=== PATIENT | male | born 1955 | race Caucasian/White ===

== ENCOUNTER → 2018-04-20 | Outpatient (CLI) | payer OTHER ==
[~2018-04-20] MED LIST: AMBIEN10 MG PO; ASPIRIN81 MG; AVEED; DIFLUNISAL500 MG PO; DIPYRIDAMOLE25 MG; FENTANYL CITRATE/PF 100MCG/2 ML INJ ONE; HYDROCODONE/APAP 5MG-325MG TAB ONE; LIDOCAINE HCL 1% LOCAL INJ 20 ML VIAL ONE; LOVASTATIN40 MG; METFORMIN HCL500 MG PO; MIDAZOLAM HCL 2 MG/2 ML VIAL ONE; ORPHENADRINE C100 MG PO; SPIRONOLACTONE25 MG PO; VERAPAMIL ER120 MG; WELLBUTRIN100 MG PO
[2018-04-20 09:17] LABS: INR 0.73
[2018-04-20 09:18] LABS: PARTIAL THROMBOPLASTIN TIME 30.1 seconds (23.8-35.5)
--- NOTE | 2018-04-20 12:03 | Diagnostic Imaging Report ---
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 Boggs Pre-operative diagnosis: Left retroperitoneal mass Post-operative diagnosis: Left retroperitoneal mass Conscious Sedation: Versed 1.5 mg and Fentanyl 100 mcg. The patient's heart rate and pulse oximetry were continuously monitored by the interventional radiology nurse. Blood pressure was monitored at 5 minute intervals. Total intraservice time for sedation: 35 minutes Additional Medications: Lidocaine 1% for local anesthesia Fluoroscopy time: 0 Dose-area Product: 0 mGycm2. Frontal Air Kerma: 0 Contrast used: None Estimated blood loss: Less than 5 cc Specimens: Fine-needle aspiration specimens x2, core biopsy specimens x4 Implants: None Condition at completion of procedure: Stable Disposition: Radiology holding area DISCUSSION: Informed consent was obtained and documented in the medical record after discussion of risks and benefits. The patient was placed in the prone position on the CT couch and a marker grid was placed over the left flank. Limited CT examination of the upper abdomen was performed and a suitable percutaneous approach to the left retroperitoneal mass was identified. The overlying skin was marked then prepped and draped in the standard sterile fashion. 1% lidocaine was infiltrated into the skin and subcutaneous tissues for local anesthesia. Then under intermittent CT guidance, a 16-gauge needle guide was advanced to the periphery of the mass. Subsequently, 2 fine-needle aspiration specimens were obtained using 22-gauge coaxial needles. Specimens were submitted to on-site cytopathology personnel and adequacy was confirmed. Then, 4 core biopsy specimens were obtained using an 18-gauge, 2 cm throw core biopsy apparatus with human resources hr representative CT images documenting needle position within the mass. Specimens were submitted in formalin. The needle was then removed and a sterile dressing was applied. The patient tolerated the procedure without immediate complication. FINDINGS: Left retroperitoneal mass measuring approximately 2.5 cm.. IMPRESSION: Successful CT-guided fine-needle aspiration and core biopsies of a left retroperitoneal mass as above. Signed by: Dr. Héctor Boggs M.D. on 04/20/2018 12:00 PM
--- NOTE | 2018-04-20 12:03 | Diagnostic Imaging Report ---
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 Boggs Pre-operative diagnosis: Left retroperitoneal mass Post-operative diagnosis: Left retroperitoneal mass Conscious Sedation: Versed 1.5 mg and Fentanyl 100 mcg. The patient's heart rate and pulse oximetry were continuously monitored by the interventional radiology nurse. Blood pressure was monitored at 5 minute intervals. Total intraservice time for sedation: 35 minutes Additional Medications: Lidocaine 1% for local anesthesia Fluoroscopy time: 0 Dose-area Product: 0 mGycm2. Frontal Air Kerma: 0 Contrast used: None Estimated blood loss: Less than 5 cc Specimens: Fine-needle aspiration specimens x2, core biopsy specimens x4 Implants: None Condition at completion of procedure: Stable Disposition: Radiology holding area DISCUSSION: Informed consent was obtained and documented in the medical record after discussion of risks and benefits. The patient was placed in the prone position on the CT couch and a marker grid was placed over the left flank. Limited CT examination of the upper abdomen was performed and a suitable percutaneous approach to the left retroperitoneal mass was identified. The overlying skin was marked then prepped and draped in the standard sterile fashion. 1% lidocaine was infiltrated into the skin and subcutaneous tissues for local anesthesia. Then under intermittent CT guidance, a 16-gauge needle guide was advanced to the periphery of the mass. Subsequently, 2 fine-needle aspiration specimens were obtained using 22-gauge coaxial needles. Specimens were submitted to on-site cytopathology personnel and adequacy was confirmed. Then, 4 core biopsy specimens were obtained using an 18-gauge, 2 cm throw core biopsy apparatus with customer relations representative CT images documenting needle position within the mass. Specimens were submitted in formalin. The needle was then removed and a sterile dressing was applied. The patient tolerated the procedure without immediate complication. FINDINGS: Left retroperitoneal mass measuring approximately 2.5 cm.. IMPRESSION: Successful CT-guided fine-needle aspiration and core biopsies of a left retroperitoneal mass as above. Signed by: Dr. Héctor Boggs M.D. on 04/20/2018 12:00 PM
--- NOTE | 2018-04-20 12:03 | Diagnostic Imaging Report ---
Date and Time: 04/20/2018 at 10:30 Procedure: CT-guided fine-needle aspiration and core biopsy of a left retroperitoneal mass casting operator: Dr. Boggs Pre-operative diagnosis: Left retroperitoneal mass Post-operative diagnosis: Left retroperitoneal mass Conscious Sedation: Versed 1.5 mg and Fentanyl 100 mcg. The patient's heart rate and pulse oximetry were continuously monitored by the interventional radiology nurse. Blood pressure was monitored at 5 minute intervals. Total intraservice time for sedation: 35 minutes Additional Medications: Lidocaine 1% for local anesthesia Fluoroscopy time: 0 Dose-area Product: 0 mGycm2. Frontal Air Kerma: 0 Contrast used: None Estimated blood loss: Less than 5 cc Specimens: Fine-needle aspiration specimens x2, core biopsy specimens x4 Implants: None Condition at completion of procedure: Stable Disposition: Radiology holding area DISCUSSION: Informed consent was obtained and documented in the medical record after discussion of risks and benefits. The patient was placed in the prone position on the CT couch and a marker grid was placed over the left flank. Limited CT examination of the upper abdomen was performed and a suitable percutaneous approach to the left retroperitoneal mass was identified. The overlying skin was marked then prepped and draped in the standard sterile fashion. 1% lidocaine was infiltrated into the skin and subcutaneous tissues for local anesthesia. Then under intermittent CT guidance, a 16-gauge needle guide was advanced to the periphery of the mass. Subsequently, 2 fine-needle aspiration specimens were obtained using 22-gauge coaxial needles. Specimens were submitted to on-site cytopathology personnel and adequacy was confirmed. Then, 4 core biopsy specimens were obtained using an 18-gauge, 2 cm throw core biopsy apparatus with malt liquors sales representative CT images documenting needle position within the mass. Specimens were submitted in formalin. The needle was then removed and a sterile dressing was applied. The patient tolerated the procedure without immediate complication. FINDINGS: Left retroperitoneal mass measuring approximately 2.5 cm.. IMPRESSION: Successful CT-guided fine-needle aspiration and core biopsies of a left retroperitoneal mass as above. Signed by: Dr. Héctor Boggs M.D. on 04/20/2018 12:00 PM
--- NOTE | 2018-04-20 12:03 | Diagnostic Imaging Report ---
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 Boggs Pre-operative diagnosis: Left retroperitoneal mass Post-operative diagnosis: Left retroperitoneal mass Conscious Sedation: Versed 1.5 mg and Fentanyl 100 mcg. The patient's heart rate and pulse oximetry were continuously monitored by the interventional radiology nurse. Blood pressure was monitored at 5 minute intervals. Total intraservice time for sedation: 35 minutes Additional Medications: Lidocaine 1% for local anesthesia Fluoroscopy time: 0 Dose-area Product: 0 mGycm2. Frontal Air Kerma: 0 Contrast used: None Estimated blood loss: Less than 5 cc Specimens: Fine-needle aspiration specimens x2, core biopsy specimens x4 Implants: None Condition at completion of procedure: Stable Disposition: Radiology holding area DISCUSSION: Informed consent was obtained and documented in the medical record after discussion of risks and benefits. The patient was placed in the prone position on the CT couch and a marker grid was placed over the left flank. Limited CT examination of the upper abdomen was performed and a suitable percutaneous approach to the left retroperitoneal mass was identified. The overlying skin was marked then prepped and draped in the standard sterile fashion. 1% lidocaine was infiltrated into the skin and subcutaneous tissues for local anesthesia. Then under intermittent CT guidance, a 16-gauge needle guide was advanced to the periphery of the mass. Subsequently, 2 fine-needle aspiration specimens were obtained using 22-gauge coaxial needles. Specimens were submitted to on-site cytopathology personnel and adequacy was confirmed. Then, 4 core biopsy specimens were obtained using an 18-gauge, 2 cm throw core biopsy apparatus with order entry representative CT images documenting needle position within the mass. Specimens were submitted in formalin. The needle was then removed and a sterile dressing was applied. The patient tolerated the procedure without immediate complication. FINDINGS: Left retroperitoneal mass measuring approximately 2.5 cm.. IMPRESSION: Successful CT-guided fine-needle aspiration and core biopsies of a left retroperitoneal mass as above. Signed by: Dr. Héctor Boggs M.D. on 04/20/2018 12:00 PM
== END ==
LOC: CT 07:57
PROVIDERS: ATTEND Urology
DX: R93.5 Abnormal findings on diagnostic imaging of other abdominal regions, including retroperitoneum (principal)
CPT/HCPCS: 10022; 36415; 49180; 77012; 85049; 85610; 85730; 88112; 88172; 88173; 88305; J2001; J2250; 88342; 99152; 99153

== ENCOUNTER 2018-04-21 03:32 | Emergency (ER) | payer BC, OTHER ==
[~2018-04-21] VITALS: Ht 330.2 cm; Wt 108.9 kg
[~2018-04-21 03:32] MED LIST changes: -FENTANYL CITRATE/PF 100MCG/2 ML INJ ONE; -HYDROCODONE/APAP 5MG-325MG TAB ONE; -LIDOCAINE HCL 1% LOCAL INJ 20 ML VIAL ONE; -MIDAZOLAM HCL 2 MG/2 ML VIAL ONE
--- OUTSIDE RECORDS SUMMARY | 2018-04-21 03:36 | XMS REPORT ---
Author Author [facility] Address Unknown Phone Unavailable Care Team Providers Care Forestry Aid Technician Name Role Phone BRENDA CARRASCO Unavailable Unavailable Problems This patient has no known problems. Allergies, Adverse Reactions, Alerts This patient has no known allergies or adverse reactions. Medications This patient has no known medications. 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 Perdue Pre-operative diagnosis: Left retroperitoneal mass Post-operative diagnosis: Left retroperitoneal mass Conscious Sedation: Versed 1.5 mg and Fentanyl 100 mcg. The patient's heart rate and pulse oximetry were continuously monitored by the interventional radiology nurse. Blood pressure was monitored at 5 minute intervals. Total intraservice time for sedation: 35 minutes Additional Medications: Lidocaine 1% for local anesthesia Fluoroscopy time: 0 Dose-area Product: 0 mGycm2. Frontal Air Kerma: 0 Contrast used: None Estimated blood loss: Less than 5 cc Specimens: Fine-needle aspiration specimens x2, core biopsy specimens x4 Implants: None Condition at completion of procedure: Stable Disposition: Radiology holding area DISCUSSION: Informed consent was obtained and documented in the medical record after discussion of risks and benefits. The patient was placed in the prone position on the CT couch and a marker grid was placed over the left flank. Limited CT examination of the upper abdomen was performed and a suitable percutaneous approach to the left retroperitoneal mass was identified. The overlying skin was marked then prepped and draped in the standard sterile fashion. 1% lidocaine was infiltrated into the skin and subcutaneous tissues for local anesthesia. Then under intermittent CT guidance, a 16-gauge needle guide was advanced to the periphery of the mass. Subsequently, 2 fine-needle aspiration specimens were obtained using 22-gauge coaxial needles. Specimens were submitted to on-site cytopathology personnel and adequacy was confirmed. Then, 4 core biopsy specimens were obtained using an 18-gauge, 2 cm throw core biopsy apparatus with food service sales representatives CT images documenting needle position within the mass. Specimens were submitted in formalin. The needle was then removed and a sterile dressing was applied. The patient tolerated the procedure without immediate complication. FINDINGS: Left retroperitoneal mass measuring approximately 2.5 cm.. IMPRESSION: Successful CT-guided fine-needle aspiration and core biopsies of a left retroperitoneal mass as above. Signed by: Dr. Ulises Perdue M.D. 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 Perdue Pre-operative diagnosis: Left retroperitoneal mass Post-operative diagnosis: Left retroperitoneal mass Conscious Sedation: Versed 1.5 mg and Fentanyl 100 mcg. The patient's heart rate and pulse oximetry were continuously monitored by the interventional radiology nurse. Blood pressure was monitored at 5 minute intervals. Total intraservice time for sedation: 35 minutes Additional Medications: Lidocaine 1% for local anesthesia Fluoroscopy time: 0 Dose-area Product: 0 mGycm2. Frontal Air Kerma: 0 Contrast used: None Estimated blood loss: Less than 5 cc Specimens: Fine-needle aspiration specimens x2, core biopsy specimens x4 Implants: None Condition at completion of procedure: Stable Disposition: Radiology holding area DISCUSSION: Informed consent was obtained and documented in the medical record after discussion of risks and b enefits. The patient was placed in the prone position on the CT couch and a marker grid was placed over the left flank. Limited CT examination of the upper abdomen was performed and a suitable percutaneous approach to the left retroperitoneal mass was identified. The overlying skin was marked then prepped and draped in the standard sterile fashion. 1% lidocaine was infiltrated into the skin and subcutaneous tissues for local anesthesia. Then under intermittent CT guidance, a 16-gauge needle guide was advanced to the periphery of the mass. Subsequently, 2 fine-needle aspiration specimens were obtained using 22-gauge coaxial needles. Specimens were submitted to on-site cytopathology personnel and adequacy was confirmed. Then, 4 core biopsy specimens were obtained using an 18-gauge, 2 cm throw core biopsy apparatus with food service sales representatives CT images documenting needle position within the mass. Specimens were submitted in formalin. The needle was then removed and a sterile dressing was applied. The patient tolerated the procedure without immediate complication. FINDINGS: Left retroperitoneal mass measuring approximately 2.5 cm.. IMPRESSION: Successful CT-guided fine-needle aspiration and core biopsies of a left retroperitoneal mass as above. Signed by: Dr. Ulises Perdue M.D. on 04/20/2018 12:00 PM Dictated By: ULISES PERDUE MD 1200 Transcribed By: JILL on 04/20/18 1200 COPY TO: BRENDA CARRASCO MD, MD SEDATE INITIAL > 5 YRS 2018-04-20 11:52:00 [place] [address] Patient Name: SAM ANDERSON MR #: [id number] : 1955 Age/Sex: 63/M Req #: [id number] Adm Physician: Ordered by: ULISES PERDUE MD Report #: [id number] Location: [place] Room/Bed: Procedure: [id number] JOSE/ SEDATE INITIAL > 5 YRS Exam Date: 04/20/18 Exam Time: 1019 REPORT STATUS: Signed Date and Time: 04/20/2018 at 10:30 Procedure: CT- guided fine-needle aspiration and core biopsy of a left retroperitoneal mass gear lapping 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 Perdue Pre-operative diagnosis: Left retroperitoneal mass Post-operative diagnosis: Left retroperitoneal mass Conscious Sedation: Versed 1.5 mg and Fentanyl 100 mcg. The patient's heart rate and pulse oximetry were continuously monitored by the interventional radiology nurse. Blood pressure was monitored at 5 minute intervals. Total intraservice time for sedation: 35 minutes Additional Medications: Lidocaine 1% for local anesthesia Fluoroscopy time: 0 Dose-area Product: 0 mGycm2. Frontal Air Kerma: 0 Contrast used: None Estimated blood loss: Less than 5 cc Specimens: Fine-needle aspiration specimens x2, core biopsy specimens x4 Implants: None Condition at completion of procedure: Stable Disposition: Radiology holding area DISCUSSION: Informed consent was obtained and documented in the medical record after discussion of risks and benefits. The patient was placed in the prone position on the CT couch and a marker grid was placed over the left flank. Limited CT examination of the upper abdomen was performed and a suitable percutaneous approach to the left retroperitoneal mass was identified. The overlying skin was marked then prepped and draped in the standard sterile fashion. 1% lidocaine was infiltrated into the skin and subcutaneous tissues for local anesthesia. Then under intermittent CT guidance, a 16-gauge needle guide was advanced to the periphery of the mass. Subsequently, 2 fine-needle aspiration specimens were obtained using 22-gauge coaxial needles. Specimens were submitted to on-site cytopathology personnel and adequacy was confirmed. Then, 4 core biopsy specimens were obtained using an 18-gauge, 2 cm throw core biopsy apparatus with food service sales representatives CT images documenting needle position within the mass. Specimens were submitted in formalin. The needle was then removed and a sterile dressing was applied. The patient tolerated the procedure without immediate complication. FINDINGS: Left retroperitoneal mass measuring approximately 2.5 cm.. IMPRESSION: Successful CT-guided fine-needle aspiration and core biopsies of a left retroperitoneal mass as above. Signed by: Dr. Ulises Perdue M.D. on 04/20/2018 12:00 PM Dictated By: ULISES PERDUE MD 1200 Transcribed By: JILL on 04/20/18 1200 COPY TO: ULISES PERDUE MD BIOPSY ABDOMEN RETROPERITONEAL 2018-04-20 11:52:00 [place] [address] Patient Name: SAM ANDERSON MR #: [id number] : 1955 Age/Sex: 63/M Req #: [id number] Adm Physician: Ordered by: BRENDA CARRASCO MD Report #: [id number] Location: [place] Room/Bed: Procedure: [id number] IR/BIOPSY ABDOMEN RETROPERITONEAL Exam Date: 04/20/18 Exam Time: 1019 REPORT STATUS: Signed Date and Time: 04/20/2018 at 10:30 Procedure: CT-guided fine-needle aspiration and core biopsy of a left retroperitoneal mass gear lapping 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 Perdue Pre-operative diagnosis: Left retroperitoneal mass Post-operative diagnosis: Left retroperitoneal mass Conscious Sedation: Versed 1.5 mg and Fentanyl 100 mcg. The patient's heart rate and pulse oximetry were continuously monitored by the interventional radiology nurse. Blood pressure was monitored at 5 minute intervals. Total intraservice time for sedation: 35 minutes Additional Medications: Lidocaine 1% for local anesthesia Fluoroscopy time: 0 Dose-area Product: 0 mGycm2. Frontal Air Kerma: 0 Contrast used: None Estimated blood loss: Less than 5 cc Specimens: Fine-needle aspiration specimens x2, core biopsy specimens x4 Implants: None Condition at completion of procedure: Stable Disposition: Radiology holding area DISCUSSION: Informed consent was obtained and documented in the medical record after discussion of risks and benefits. The patient was placed in the prone position on the CT couch and a marker grid was placed over the left flank. Limited CT examination of the upper abdomen was performed and a suitable percutaneous approach to the left retroperitoneal mass was identified. The overlying skin was marked then prepped and draped in the standard sterile fashion. 1% lidocaine was infiltrated into the skin and subcutaneous tissues for local anesthesia. Then under intermittent CT guidance, a 16-gauge needle guide was advanced to the periphery of the mass. Subsequently, 2 fine-needle aspiration specimens were obtained using 22-gauge coaxial needles. Specimens were submitted to on-site cytopathology personnel and adequacy was confirmed. Then, 4 core biopsy specimens were obtained using an 18-gauge, 2 cm throw core biopsy apparatus with food service sales representatives CT images documenting needle position within the mass. Specimens were submitted in formalin. The needle was then removed and a sterile dressing was applied. The patient tolerated the procedure without immediate complication. FINDINGS: Left retroperitoneal mass measuring approximately 2.5 cm.. IMPRESSION: Successful CT-guided fine-needle aspiration and core biopsies of a left retroperitoneal mass as above. Signed by: Dr. Ulises Perdue M.D. on 04/20/2018 12:00 PM Dictated By: ULISES PERDUE MD 1200 Transcribed By: JILL on 04/20/18 1200 COPY TO: BRENDA CARRASCO MD CT GUIDED BIOPSY/ASPIR/INJ/KODI 2018-04-20 11:52:00 [place] [address] Patient Name: SAM ANDERSON MR #: [id number] : 1955 Age/Sex: 63/M Req #: [id number] Adm Physician: Ordered by: BRENDA CARRASCO MD Report #: [id number] Location: CT Room/Bed: Procedure: [id number] CT/CT GUIDED BIOPSY/ASPIR/INJ/KODI Exam Date: 04/20/18 Exam Time: 1019 REPORT STATUS: Signed Date and Time: 04/20/2018 at 10:30 Procedure: CT-guided fine-needle aspiration and core biopsy of a left retroperitoneal mass gear lapping 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 Perdue Pre-operative diagnosis: Left retroperitoneal mass Post-operative diagnosis: Left retroperitoneal mass Conscious Sedation: Versed 1.5 mg and Fentanyl 100 mcg. The patient's heart rate and pulse oximetry were continuously monitored by the interventional radiology nurse. Blood pressure was monitored at 5 minute intervals. Total intraservice time for sedation: 35 minutes Additional Medications: Lidocaine 1% for local anesthesia Fluoroscopy time: 0 Dose-area Product: 0 mGycm2. Frontal Air Kerma: 0 Contrast used: None Estimated blood loss: Less than 5 cc Specimens: Fine-needle aspiration specimens x2, core biopsy specimens x4 Implants: None Condition at completion of procedure: Stable Disposition: Radiology holding area DISCUSSION: Informed consent was obtained and documented in the medical record after discussion of risks and benefits. The patient was placed in the prone position on the CT couch and a marker grid was placed over the left flank. Limited CT examination of the upper abdomen was performed and a suitable percutaneous approach to the left retroperitoneal mass was identified. The overlying skin was marked then prepped and draped in the standard sterile fashion. 1% lidocaine was infiltrated into the skin and subcutaneous tissues for local anesthesia. Then under intermittent CT guidance, a 16-gauge needle guide was advanced to the periphery of the mass. Subsequently, 2 fine-needle aspiration specimens were obtained using 22-gauge coaxial needles. Specimens were submitted to on-site cytopathology personnel and adequacy was confirmed. Then, 4 core biopsy specimens were obtained using an 18-gauge, 2 cm throw core biopsy apparatus with food service sales representatives CT images documenting needle position within the mass. Specimens were submitted in formalin. The needle was then removed and a sterile dressing was applied. The patient tolerated the procedure without immediate complication. FINDINGS: Left retroperitoneal mass measuring approximately 2.5 cm..
[2018-04-21] MEDS ORDERED: LIDOCAINE 5% PATCH TP ONE (04:23)
[2018-04-21] MEDS ORDERED: LIDOCAINE 5% PATCH TP STA (04:39)
[2018-04-21 06:28] VITALS: BP 103/89
== END 2018-04-21 06:07 | disposition home or self-care (01) ==
LOC: ER 03:32
DX: M54.5 Low back pain (principal); S39.012A Strain of muscle, fascia and tendon of lower back, initial encounter; Z87.891 Personal history of nicotine dependence
CPT/HCPCS: 99283

== ENCOUNTER 2020-04-18 08:34 | Observation (INO) | payer MEDICARE ==
[2020-04-15 13:39] LABS: BASOPHILS % 0.4 % (0.0-1.0); EOSINOPHILS # (AUTO) 0.1 (0.0-0.4); EOSINOPHILS % 0.7 % (0.0-6.0); HEMATOCRIT 46.9 % (38.2-49.6); HEMOGLOBIN 15.5 g/dL (14.0-18.0); LYMPHOCYTES # (AUTO) 1.9 (1.0-3.2); LYMPHOCYTES % 27.6 % (18.0-39.1); MEAN CORPUSCULAR HEMOGLOBIN 31.6 pg (28-32); MEAN CORPUSCULAR VOLUME 95.7 fL (81-99); MONOCYTES # (AUTO) 0.6 (0.2-0.8); MONOCYTES % 8.7 % (4.4-11.3); NEUTROPHILS # (AUTO) 4.4 (2.1-6.9); NEUTROPHILS % 62.2 % (38.7-80.0); PLATELET COUNT 234 x10e3/uL (140-360); RED CELL DISTRIBUTION WIDTH 14.9 % (11.7-14.4)
[2020-04-15 13:59] LABS: ALANINE AMINOTRANSFERASE 25 IU/L (0-55); ALBUMIN 3.9 g/dL (3.5-5.0); ALBUMIN/GLOBULIN RATIO 1.3 (0.8-2.0); ALKALINE PHOSPHATASE 51 IU/L (40-150); ANION GAP 14.5 mmol/L (8-16); BLOOD UREA NITROGEN 14 mg/dL (7-26); BUN/CREATININE RATIO 16 (6-25); CALCIUM 9.5 mg/dL (8.4-10.2); CARBON DIOXIDE 28 mmol/L (22-29); CHLORIDE 104 mmol/L (98-107); CREATININE, SERUM 0.87 mg/dL (0.72-1.25); EST GLOMERULAR FILTRATION RATE > 60 ML/MIN (60-); GLUCOSE 95 mg/dL (74-118); POTASSIUM 4.5 mmol/L (3.5-5.1); SODIUM 142 mmol/L (136-145)
[~2020-04-18] VITALS: Ht 177.8 cm; Wt 103.4 kg
[~2020-04-18 08:34] MED LIST changes: +BACTRIM DS TAB1 EACH PO; +CARVEDILOL3.125 MG PO; +FLOMAX0.4 MG PO; -LOVASTATIN40 MG; +LOVASTATIN40 MG PO; +METOPROLOL TART25 MG PO; -VERAPAMIL ER120 MG; +VERAPAMIL ER120 MG PO; +VITAMIN D
[2020-04-18] MEDS ORDERED: LEVOFLOXACIN 500MG/D5W 100ML 100 ML IV ONE (09:18)
[2020-04-18] MEDS ORDERED: IOPAMIDOL 300MG/ML 50ML INFUS..BTL IV ONE (10:18)
[2020-04-18] MEDS ORDERED: B&O 60MG R/S 60 MG SUPP PR ONE (10:18)
[2020-04-18] MEDS ORDERED: SEVOFLURANE INHAL SOLN 250 ML PEN BTL ONE (12:30)
[2020-04-18] MEDS ORDERED: PROPOFOL IV EMULSION 10 MG/ML 20 ML VIAL ONE (12:30)
[2020-04-18] MEDS ORDERED: LIDOCAINE HCL 2% LOCAL INJ 5 ML SDV VIAL INJ ONE (12:30)
[2020-04-18] MEDS ORDERED: ONDANSETRON HCL INJ 2MG/ML 2ML 2 MG/ML VIAL ONE (12:30)
[2020-04-18] MEDS ORDERED: DEXAMETHASONE SOD PHOS INJ 4 MG/ML VIAL ONE (12:30)
[2020-04-18] MEDS ORDERED: FENTANYL CITRATE/PF 100MCG/2 ML INJ ONE ×2 (12:42→17:35)
[2020-04-18] MEDS ORDERED: HYDROMORPHONE 2MG/ML 2 MG/ML ML ONE (12:51)
[2020-04-18] MEDS ORDERED: MORPHINE SULFATE INJ 4 MG/ML INJ 1ML ONE (13:20)
[2020-04-18] MEDS ORDERED: MORPHINE SULFATE 2 MG/ML SYR 1ML ONE (14:18)
[2020-04-18 16:06] VITALS: BP 107/75
[2020-04-18 16:30] VITALS: BP 107/75
[2020-04-18] MEDS ORDERED: ONDANSETRON HCL INJ 2MG/ML 2ML 2 MG/ML VIAL IV PRN (16:30)
[2020-04-18] MEDS ORDERED: TRAMADOL HCL 50 MG TAB PO PRN (16:30)
[2020-04-18] MEDS ORDERED: KETOROLAC TROMETHAMINE 30 MG/ML VIAL IV PRN (16:30)
[2020-04-18] MEDS ORDERED: MIDAZOLAM HCL 2 MG/2 ML VIAL ONE (17:35)
[2020-04-18] MEDS ORDERED: PNEUMOCOCCAL VACCINE POLYVALENT 23 MCG/0.5 ML VIAL IM SCH (17:35)
[2020-04-18] MEDS: LACTATED RINGER'S 1,000 ML INJ SCH (17:46)
[2020-04-18] MEDS ORDERED: METOPROLOL TART25 MG PO (17:53)
[2020-04-18] MEDS ORDERED: ZOLPIDEM TARTRATE 10 MG TAB PO PRN (18:00)
[2020-04-18 20:00] VITALS: BP 101/65
[2020-04-18 21:00] VITALS: BP 101/65
[2020-04-18] MEDS ORDERED: METOPROLOL TARTRATE 25 MG TAB PO SCH (21:00)
[2020-04-18] MEDS: CIPROFLOXACIN 500 MG TAB PO SCH (21:04)
[2020-04-18] MEDS: SIMVASTATIN 40 MG TAB PO SCH (21:04)
[2020-04-19] VITALS (8 sets, daily range): BP systolic 105–114; BP diastolic 66–79
[2020-04-19] MEDS: LACTATED RINGER'S 1,000 ML INJ SCH ×3 (01:19→17:49)
[2020-04-19] MEDS: B&O 60MG R/S 60 MG SUPP PR PRN ×2 (06:25→12:54)
[2020-04-19] MEDS ORDERED: METFORMIN HCL 500 MG TAB PO SCH (09:00)
[2020-04-19] MEDS ORDERED: METOPROLOL TARTRATE 25 MG TAB PO SCH (09:00)
[2020-04-19] MEDS ORDERED: TAMSULOSIN HCL 0.4 MG CAP PO SCH ×2 (09:00→21:00)
[2020-04-19] MEDS: CIPROFLOXACIN 500 MG TAB PO SCH ×2 (09:57→20:23)
[2020-04-19] MEDS: CARVEDILOL 3.125 MG TAB PO SCH ×2 (09:57→17:50)
[2020-04-19] MEDS: VERAPAMIL HCL 120 MG TABSR PO SCH (09:57)
[2020-04-19] MEDS: SPIRONOLACTONE 25 MG TAB PO SCH (09:57)
[2020-04-19] MEDS: SIMVASTATIN 40 MG TAB PO SCH (20:24)
[2020-04-20] VITALS: BP 112/69
[2020-04-20] MEDS: LACTATED RINGER'S 1,000 ML INJ SCH ×2 (00:30→07:43)
[2020-04-20 04:00] VITALS: BP 118/74
[2020-04-20] MEDS: B&O 60MG R/S 60 MG SUPP PR PRN (07:43)
[2020-04-20 08:21] VITALS: BP 122/84
[2020-04-20] MEDS: CARVEDILOL 3.125 MG TAB PO SCH (08:52)
[2020-04-20] MEDS: CIPROFLOXACIN 500 MG TAB PO SCH (08:52)
[2020-04-20] MEDS: SPIRONOLACTONE 25 MG TAB PO SCH (08:52)
[2020-04-20] MEDS: VERAPAMIL HCL 120 MG TABSR PO SCH (08:52)
[2020-04-20 09:37] VITALS: BP 122/84
[2020-04-20] MEDS ORDERED: ULTRAM50 MG PO (10:49)
[2020-04-20] MEDS ORDERED: CIPRO500 MG PO (10:50)
[2020-04-20 11:13] VITALS: BP 123/87
[2020-04-20] MEDS ORDERED: METFORMIN HCL 500 MG TAB PO SCH (21:00)
== END 2020-04-20 12:07 | disposition home or self-care (01) ==
LOC: OR 08:34 → PACU V 13:03 → MED/SURG 15:51
PROVIDERS: ADMIT Urology; ATTEND Urology
DX: N40.1 Benign prostatic hyperplasia with lower urinary tract symptoms (principal); R33.8 Other retention of urine; N39.0 Urinary tract infection, site not specified; E11.9 Type 2 diabetes mellitus without complications; G47.33 Obstructive sleep apnea (adult) (pediatric); I10 Essential (primary) hypertension; N32.89 Other specified disorders of bladder; Z20.828 Contact with and (suspected) exposure to other viral communicable diseases
CPT/HCPCS: 36415 ×2; 52601; 71046; 74420; 80053; 82948; 85025; 87086; 88305; 93005; 96360; 96361; C1758; G0378 ×3; J1100; J1170; J1885; J1956; J2001; J2250; J2270 ×2; J2405; J2704; J3010; J7121 ×3; Q9967; U0002

== ENCOUNTER 2022-02-21 07:17 | Inpatient (IN) | payer MEDICARE ==
[~2022-02-21] VITALS: Ht 172.7 cm; Wt 103.4 kg
[~2022-02-21 07:17] MED LIST changes: +CIPRO500 MG PO; +ULTRAM50 MG PO
[2022-02-21] MEDS ORDERED: ONDANSETRON HCL INJ 2MG/ML 2ML 2 MG/ML VIAL IV STA (07:38)
[2022-02-21] MEDS ORDERED: KETOROLAC TROMETHAMINE 30 MG/ML VIAL IV STA (07:38)
[2022-02-21] MEDS ORDERED: FENTANYL CITRATE/PF 100MCG/2 ML INJ IV ONE (07:45)
[2022-02-21] MEDS ORDERED: SODIUM CHLORIDE 0.9% 1000ML 1,000 ML IV SCH (08:00)
[2022-02-21 08:09] LABS: BASOPHILS % 0.2 % (0.0-1.0); HEMATOCRIT 47.2 % (38.2-49.6); LYMPHOCYTES % 4.7 % (18.0-39.1); MEAN CORPUSCULAR HGB CONC 33.9 g/dL (31-35); MEAN CORPUSCULAR VOLUME 97.3 fL (81-99); MONOCYTES # (AUTO) 1.9 (0.2-0.8); MONOCYTES % 9.2 % (4.4-11.3); NEUTROPHILS # (AUTO) 17.2 (2.1-6.9); NEUTROPHILS % 84.8 % (38.7-80.0); PLATELET COUNT 224 x10e3/uL (140-360); RED BLOOD COUNT 4.85 x10e6/uL (4.3-5.7); RED CELL DISTRIBUTION WIDTH 13.7 % (11.7-14.4)
[2022-02-21 08:47] LABS: ALBUMIN/GLOBULIN RATIO 1.3 (0.8-2.0); CALCIUM 9.1 mg/dL (8.4-10.2); CREATININE, SERUM 1.37 mg/dL (0.72-1.25)
[2022-02-21] MEDS ORDERED: PIPERACILLIN/TAZOBACTAM 4.5 GM in SODIUM CHLORIDE 0.9% 100 ML IV STA (09:06)
[2022-02-21 09:13] LABS: CLARITY,URINE CLEAR (CLEAR); COLOR,URINE YELLOW (YELLOW); KETONES,URINE NEGATIVE (NEGATIVE); LEUKOCYTE ESTERASE ,URINE SMALL (NEGATIVE); NITRITE,URINE NEGATIVE (NEGATIVE); PROTEIN,URINE DIPSTICK TRACE (NEGATIVE); URINE UROBILINOGEN 0.2 mg/dL (0.2 - 1)
[2022-02-21 09:20] LABS: BACTERIA,URINE FEW /HPF; EPITHELIAL CELLS,URINE FEW /LPF; WBC,URINE (MAN) >50 /HPF (0-5)
[2022-02-21] MEDS: SODIUM CHLORIDE 0.9% 1000ML 1,000 ML IV SCH ×3 (09:30→21:08)
[2022-02-21] MEDS ORDERED: ONDANSETRON HCL INJ 2MG/ML 2ML 2 MG/ML VIAL IV PRN ×2 (09:30→15:30)
[2022-02-21] MEDS ORDERED: GENTAMICIN 80MG/NS 100 ML 100 ML IV STA (10:21)
[2022-02-21] MEDS: Morphine 4mg INJECTION 4 MG/ML INJ IV PRN ×2 (11:00→21:14)
[2022-02-21] MEDS ORDERED: PROPOFOL IV EMULSION 10 MG/ML 20 ML VIAL ONE (12:21)
[2022-02-21] MEDS ORDERED: ETOMIDATE 2 MG/ML 10 ML INJ IV ONE (12:21)
[2022-02-21] MEDS ORDERED: SEVOFLURANE INHAL SOLN 250 ML PEN BTL ONE (12:21)
[2022-02-21] MEDS ORDERED: DEXAMETHASONE SOD PHOS INJ 4 MG/ML SDV ONE (12:21)
[2022-02-21] MEDS ORDERED: ONDANSETRON HCL INJ 2MG/ML 2ML 2 MG/ML VIAL ONE (12:21)
[2022-02-21] MEDS ORDERED: POVIDONE IODINE 0.05% 0.05 % ML PO ONE (12:21)
[2022-02-21 12:34] VITALS: BP 123/70
[2022-02-21] MEDS ORDERED: MIDAZOLAM HCL 2 MG/2 ML VIAL ONE (12:49)
[2022-02-21] MEDS ORDERED: FENTANYL CITRATE/PF 100MCG/2 ML INJ ONE (12:49)
[2022-02-21 14:00] VITALS: BP 123/70
[2022-02-21] MEDS ORDERED: IOPAMIDOL 610MG/1ML 300 MG/ML VIAL IV ONE (15:09)
[2022-02-21] MEDS ORDERED: TRAMADOL/APAP 37.5MG-325MG TAB PO PRN (15:30)
[2022-02-21] MEDS ORDERED: DIPHENHYDRAMINE HCL 25 MG CAP PO PRN (15:30)
[2022-02-21] MEDS ORDERED: ACETAMINOPHEN 1000 MG/100 ML 100 ML IV ONE (15:59)
[2022-02-21] MEDS ORDERED: SODIUM CHLORIDE 0.9% 100 ML IV ONE (16:15)
[2022-02-21] MEDS: GENTAMICIN SULFATE 60 MG in SODIUM CHLORIDE 0.9% 100 ML IV SCH (18:06)
[2022-02-21 20:00] VITALS: BP_SYST 119; BP_SYST 140; BP_DIAS 73; BP_DIAS 80
[2022-02-22] VITALS: BP 98/60
[2022-02-22] MEDS: GENTAMICIN SULFATE 60 MG in SODIUM CHLORIDE 0.9% 100 ML IV SCH ×2 (01:18→10:24)
[2022-02-22 04:00] VITALS: BP 130/64
[2022-02-22 06:05] LABS: BASOPHILS % 0.2 % (0.0-1.0); HEMATOCRIT 41.3 % (38.2-49.6); HEMOGLOBIN 13.4 g/dL (14.0-18.0); LYMPHOCYTES # (AUTO) 1.6 (1.0-3.2); LYMPHOCYTES % 8.7 % (18.0-39.1); MEAN CORPUSCULAR HEMOGLOBIN 32.6 pg (28-32); MEAN CORPUSCULAR HGB CONC 32.4 g/dL (31-35); MEAN CORPUSCULAR VOLUME 100.5 fL (81-99); MONOCYTES # (AUTO) 2.1 (0.2-0.8); MONOCYTES % 10.9 % (4.4-11.3); NEUTROPHILS % 79.5 % (38.7-80.0); PLATELET COUNT 168 x10e3/uL (140-360); RED BLOOD COUNT 4.11 x10e6/uL (4.3-5.7); RED CELL DISTRIBUTION WIDTH 13.8 % (11.7-14.4)
[2022-02-22 06:32] LABS: CALCIUM 8.2 mg/dL (8.4-10.2); CREATININE, SERUM 1.29 mg/dL (0.72-1.25)
[2022-02-22 08:00] VITALS: BP 130/64
[2022-02-22] MEDS: METOPROLOL TARTRATE 25 MG TAB PO SCH (10:24)
[2022-02-22] MEDS: SODIUM CHLORIDE 0.9% 1000ML 1,000 ML IV SCH (10:24)
[2022-02-22] MEDS: Vancomycin IV 1 GM in SODIUM CHLORIDE 0.9% 250ML 250 ML IV SCH ×2 (13:37→23:35)
[2022-02-22 18:10] VITALS: BP 112/61
[2022-02-22] MEDS ORDERED: DEXTROSE 50% SYRINGE 50 ML IV PRN (18:15)
[2022-02-22] MEDS: ACETAMINOPHEN 325 MG TAB PO PRN (18:58)
[2022-02-22 20:00] VITALS: BP 99/48
[2022-02-22] MEDS: INSULIN LISPRO 100 UNIT/1 ML 3ML VIAL SQ SCH (20:18)
[2022-02-23] VITALS (11 sets, daily range): BP systolic 82–127; BP diastolic 48–91
[2022-02-23] MEDS: ACETAMINOPHEN 325 MG TAB PO PRN (05:25)
[2022-02-23 06:21] LABS: BASOPHILS % 0.3 % (0.0-1.0); EOSINOPHILS % 0.3 % (0.0-6.0); HEMATOCRIT 38.4 % (38.2-49.6); HEMOGLOBIN 12.9 g/dL (14.0-18.0); LYMPHOCYTES # (AUTO) 1.5 (1.0-3.2); LYMPHOCYTES % 13.3 % (18.0-39.1); MEAN CORPUSCULAR HEMOGLOBIN 32.8 pg (28-32); MEAN CORPUSCULAR HGB CONC 33.6 g/dL (31-35); MEAN CORPUSCULAR VOLUME 97.7 fL (81-99); MONOCYTES # (AUTO) 1.5 (0.2-0.8); NEUTROPHILS # (AUTO) 8.1 (2.1-6.9); NEUTROPHILS % 72.2 % (38.7-80.0); PLATELET COUNT 156 x10e3/uL (140-360); RED BLOOD COUNT 3.93 x10e6/uL (4.3-5.7); RED CELL DISTRIBUTION WIDTH 14.1 % (11.7-14.4)
[2022-02-23 06:43] LABS: ANION GAP 17.7 mmol/L (8-16); CALCIUM 8.5 mg/dL (8.4-10.2); CREATININE, SERUM 1.05 mg/dL (0.72-1.25); POTASSIUM 3.7 mmol/L (3.5-5.1)
[2022-02-23] MEDS: INSULIN LISPRO 100 UNIT/1 ML 3ML VIAL SQ SCH ×4 (07:30→20:24)
[2022-02-23] MEDS: METOPROLOL TARTRATE 25 MG TAB PO SCH (08:23)
[2022-02-23] MEDS ORDERED: ONDANSETRON HCL 4 MG ORAL DISINTEGRATING TAB PO PRN (11:00)
[2022-02-23] MEDS: Vancomycin IV 1 GM in SODIUM CHLORIDE 0.9% 250ML 250 ML IV SCH (12:06)
[2022-02-23] MEDS ORDERED: TRAMADOL HCL 50 MG TAB PO PRN (17:45)
[2022-02-23] MEDS ORDERED: CARVEDILOL 3.125 MG TAB PO ONE (17:50)
[2022-02-23] MEDS ORDERED: METOPROLOL SUCCINATE 50 MG TAB XL PO SCH (17:54)
[2022-02-23] MEDS ORDERED: DIGOXIN INJ 0.25 MG/ML 2 ML AMP IV ONE (18:00)
[2022-02-23] MEDS: METOPROLOL TARTRATE 50 MG TAB PO SCH (18:15)
[2022-02-23] MEDS ORDERED: METOPROLOL TARTRATE 50 MG TAB PO ONE (19:45)
[2022-02-23] MEDS: SIMVASTATIN 40 MG TAB PO SCH (20:18)
[2022-02-23] MEDS ORDERED: METOPROLOL TARTRATE 25 MG TAB PO SCH (21:00)
[2022-02-23] MEDS ORDERED: ZOLPIDEM TARTRATE 10 MG TAB PO PRN (21:00)
[2022-02-24] VITALS (9 sets, daily range): BP systolic 89–158; BP diastolic 43–103
[2022-02-24] MEDS: Vancomycin IV 1 GM in SODIUM CHLORIDE 0.9% 250ML 250 ML IV SCH ×2 (01:07→12:30)
[2022-02-24] MEDS: METOPROLOL TARTRATE 50 MG TAB PO SCH ×4 (05:30→16:53)
[2022-02-24 06:15] LABS: BASOPHILS % 0.3 % (0.0-1.0); EOSINOPHILS # (AUTO) 0.1 (0.0-0.4); EOSINOPHILS % 1.2 % (0.0-6.0); HEMOGLOBIN 12.8 g/dL (14.0-18.0); LYMPHOCYTES # (AUTO) 1.8 (1.0-3.2); LYMPHOCYTES % 21.4 % (18.0-39.1); MEAN CORPUSCULAR HEMOGLOBIN 32.2 pg (28-32); MEAN CORPUSCULAR HGB CONC 33.7 g/dL (31-35); MEAN CORPUSCULAR VOLUME 95.5 fL (81-99); MONOCYTES # (AUTO) 1.5 (0.2-0.8); MONOCYTES % 16.9 % (4.4-11.3); NEUTROPHILS # (AUTO) 5.1 (2.1-6.9); NEUTROPHILS % 59.6 % (38.7-80.0); PLATELET COUNT 173 x10e3/uL (140-360); RED BLOOD COUNT 3.98 x10e6/uL (4.3-5.7); RED CELL DISTRIBUTION WIDTH 13.8 % (11.7-14.4)
[2022-02-24 06:51] LABS: ANION GAP 14.9 mmol/L (8-16); CALCIUM 8.6 mg/dL (8.4-10.2); CREATININE, SERUM 0.84 mg/dL (0.72-1.25); MAGNESIUM 2.1 MG/DL (1.3-2.1); PHOSPHORUS 2.2 MG/DL (2.3-4.7); POTASSIUM 3.9 mmol/L (3.5-5.1)
[2022-02-24] MEDS: INSULIN LISPRO 100 UNIT/1 ML 3ML VIAL SQ SCH ×4 (07:30→20:51)
[2022-02-24] MEDS: CHOLECALCIFEROL 400 UNIT TAB PO SCH (09:13)
[2022-02-24] MEDS: SPIRONOLACTONE 25 MG TAB PO SCH (09:13)
[2022-02-24] MEDS: METFORMIN HCL 500 MG TAB PO SCH (09:14)
[2022-02-24] MEDS: TAMSULOSIN HCL 0.4 MG CAP PO SCH (09:14)
[2022-02-24] MEDS ORDERED: DILTIAZEM HCL 60 MG TAB PO SCH (11:00)
[2022-02-24 11:12] LABS: CHOL/HDL RATIO 4.6 (3.9-4.7)
[2022-02-24 11:33] LABS: THYROID STIMULATING HORMONE 1.342 uIU/mL (0.350-4.940)
[2022-02-24] MEDS: NYSTATIN SUSPENSION 5 ML UDC PO SCH (14:38)
[2022-02-24] MEDS: DILTIAZEM HCL 60 MG TAB PO SCH (16:53)
[2022-02-24] MEDS: AMIODARONE HCL 200 MG TAB PO SCH (16:53)
[2022-02-24] MEDS ORDERED: AMIODARONE HCL 200 MG TAB PO SCH (17:00)
[2022-02-24] MEDS: Vancomycin IV 1.25 GM in SODIUM CHLORIDE 0.9% 250ML 250 ML IV SCH (20:40)
[2022-02-24] MEDS: SIMVASTATIN 40 MG TAB PO SCH (20:40)
[2022-02-24] MEDS ORDERED: IOPAMIDOL 370 MG/ML 100 ML INFUS..BTL INJ ONE (21:14)
[2022-02-25] VITALS (9 sets, daily range): BP systolic 87–167; BP diastolic 43–79
[2022-02-25] MEDS: METOPROLOL TARTRATE 50 MG TAB PO SCH ×4 (00:17→17:40)
[2022-02-25] MEDS: DILTIAZEM HCL 60 MG TAB PO SCH ×4 (00:17→17:39)
[2022-02-25] MEDS: NYSTATIN SUSPENSION 5 ML UDC PO SCH ×3 (00:18→14:44)
[2022-02-25] MEDS: INSULIN LISPRO 100 UNIT/1 ML 3ML VIAL SQ SCH ×4 (07:48→21:35)
[2022-02-25] MEDS: Vancomycin IV 1.25 GM in SODIUM CHLORIDE 0.9% 250ML 250 ML IV SCH ×2 (08:26→21:35)
[2022-02-25] MEDS: SPIRONOLACTONE 25 MG TAB PO SCH (08:27)
[2022-02-25] MEDS: CHOLECALCIFEROL 400 UNIT TAB PO SCH (08:27)
[2022-02-25] MEDS: METFORMIN HCL 500 MG TAB PO SCH (08:27)
[2022-02-25] MEDS: ENOXAPARIN SODIUM INJ 100 MG/ML SYR SC SCH ×2 (08:27→21:35)
[2022-02-25] MEDS: AMIODARONE HCL 200 MG TAB PO SCH ×2 (08:27→17:39)
[2022-02-25] MEDS: TAMSULOSIN HCL 0.4 MG CAP PO SCH (08:28)
[2022-02-25] MEDS: DIGOXIN INJ 0.25 MG/ML 2 ML AMP IV SCH ×2 (13:02→14:44)
[2022-02-25] MEDS: SIMVASTATIN 40 MG TAB PO SCH (21:35)
[2022-02-26] MEDS: NYSTATIN SUSPENSION 5 ML UDC PO SCH ×4 (00:42→21:52)
[2022-02-26] MEDS: DILTIAZEM HCL 60 MG TAB PO SCH ×4 (00:42→18:00)
[2022-02-26] MEDS: METOPROLOL TARTRATE 50 MG TAB PO SCH ×2 (00:42→06:47)
[2022-02-26 05:37] VITALS: BP 114/74
[2022-02-26] MEDS: INSULIN LISPRO 100 UNIT/1 ML 3ML VIAL SQ SCH ×4 (07:30→21:53)
[2022-02-26 08:50] VITALS: BP 119/62
[2022-02-26 08:57] VITALS: BP 119/62
[2022-02-26] MEDS: SPIRONOLACTONE 25 MG TAB PO SCH (09:00)
[2022-02-26] MEDS: METFORMIN HCL 500 MG TAB PO SCH (09:00)
[2022-02-26] MEDS ORDERED: DIGOXIN 0.125 MG TAB PO SCH (09:00)
[2022-02-26] MEDS: AMIODARONE HCL 200 MG TAB PO SCH ×2 (09:00→17:00)
[2022-02-26] MEDS: Vancomycin IV 1.25 GM in SODIUM CHLORIDE 0.9% 250ML 250 ML IV SCH (09:00)
[2022-02-26] MEDS: CHOLECALCIFEROL 400 UNIT TAB PO SCH (09:00)
[2022-02-26] MEDS: TAMSULOSIN HCL 0.4 MG CAP PO SCH (09:00)
[2022-02-26] MEDS: ENOXAPARIN SODIUM INJ 100 MG/ML SYR SC SCH ×2 (09:00→21:51)
[2022-02-26] MEDS ORDERED: METOPROLOL TARTRATE 50 MG TAB PO PRN (10:45)
[2022-02-26] MEDS: METOPROLOL SUCCINATE 50 MG TAB XL PO SCH (15:03)
[2022-02-26] MEDS: DAPTOMYCIN 500mg 10ML 500 MG in SODIUM CHLORIDE 0.9% 100 ML IV SCH (16:00)
[2022-02-26 16:50] VITALS: BP 119/70
[2022-02-26 20:22] VITALS: BP 119/70
[2022-02-26] MEDS: SIMVASTATIN 40 MG TAB PO SCH (21:51)
[2022-02-27] MEDS: DILTIAZEM HCL 60 MG TAB PO SCH ×4 (00:38→16:30)
[2022-02-27 06:06] LABS: BASOPHILS # (AUTO) 0.1 (0.0-0.1); BASOPHILS % 0.5 % (0.0-1.0); EOSINOPHILS # (AUTO) 0.2 (0.0-0.4); HEMATOCRIT 40.1 % (38.2-49.6); HEMOGLOBIN 13.1 g/dL (14.0-18.0); LYMPHOCYTES % 26.3 % (18.0-39.1); MEAN CORPUSCULAR HEMOGLOBIN 32.5 pg (28-32); MEAN CORPUSCULAR HGB CONC 32.7 g/dL (31-35); MEAN CORPUSCULAR VOLUME 99.5 fL (81-99); MONOCYTES # (AUTO) 1.1 (0.2-0.8); MONOCYTES % 9.4 % (4.4-11.3); NEUTROPHILS # (AUTO) 6.8 (2.1-6.9); NEUTROPHILS % 59.4 % (38.7-80.0); PLATELET COUNT 277 x10e3/uL (140-360); RED BLOOD COUNT 4.03 x10e6/uL (4.3-5.7); RED CELL DISTRIBUTION WIDTH 13.7 % (11.7-14.4)
[2022-02-27 06:27] LABS: ANION GAP 14.2 mmol/L (8-16); CALCIUM 8.9 mg/dL (8.4-10.2); CREATININE, SERUM 0.88 mg/dL (0.72-1.25); MAGNESIUM 1.7 MG/DL (1.3-2.1); PHOSPHORUS 3.3 MG/DL (2.3-4.7); POTASSIUM 3.2 mmol/L (3.5-5.1)
[2022-02-27] MEDS: NYSTATIN SUSPENSION 5 ML UDC PO SCH ×2 (06:49→13:48)
[2022-02-27] MEDS: INSULIN LISPRO 100 UNIT/1 ML 3ML VIAL SQ SCH ×3 (07:30→16:18)
[2022-02-27 07:46] VITALS: BP 119/78
[2022-02-27 07:57] VITALS: BP 119/78
[2022-02-27] MEDS: AMIODARONE HCL 200 MG TAB PO SCH ×2 (08:35→16:28)
[2022-02-27] MEDS: METFORMIN HCL 500 MG TAB PO SCH (08:36)
[2022-02-27] MEDS: ENOXAPARIN SODIUM INJ 100 MG/ML SYR SC SCH (08:36)
[2022-02-27] MEDS: TAMSULOSIN HCL 0.4 MG CAP PO SCH (08:36)
[2022-02-27] MEDS: CHOLECALCIFEROL 400 UNIT TAB PO SCH (08:36)
[2022-02-27] MEDS: SPIRONOLACTONE 25 MG TAB PO SCH (08:36)
[2022-02-27] MEDS: METOPROLOL SUCCINATE 50 MG TAB XL PO SCH (08:39)
[2022-02-27] MEDS ORDERED: MAGNESIUM OXIDE 400 MG TAB PO ONE (11:00)
[2022-02-27] MEDS: POTASSIUM CHLORIDE 20 MEQ TAB CR PO SCH ×2 (11:16→15:25)
[2022-02-27 11:55] VITALS: BP 119/77
[2022-02-27 15:26] VITALS: BP 123/77
[2022-02-27] MEDS: DAPTOMYCIN 500mg 10ML 500 MG in SODIUM CHLORIDE 0.9% 100 ML IV SCH (17:52)
[2022-02-27] MEDS ORDERED: AMIODARONE HCL200 MG PO (18:17)
[2022-02-27] MEDS ORDERED: CARDIZEM60 MG PO (18:17)
[2022-02-27] MEDS ORDERED: FLOMAX0.4 MG PO (18:17)
[2022-02-27] MEDS ORDERED: SIMVASTATIN40 MG PO (18:17)
[2022-02-27] MEDS ORDERED: TOPROL XL50 MG PO (18:17)
[2022-02-27] MEDS ORDERED: XARELTO20 MG PO (18:22)
== END 2022-02-27 19:40 | disposition home health service (06) | DRG 854 ==
LOC: ER 07:21 → ERHOLD 09:00 → MED/SURG2 13:03
PROVIDERS: ADMIT Internal Medicine; ATTEND Internal Medicine
PROC: 0T7B8DZ Dilation of Bladder with Intraluminal Device, Via Natural or Artificial Opening Endoscopic (ICD-10-PCS; 2022-02-21)
PROC: BT141ZZ Fluoroscopy of Kidneys, Ureters and Bladder using Low Osmolar Contrast (ICD-10-PCS; 2022-02-21)
PROC: 0TC78ZZ Extirpation of Matter from Left Ureter, Via Natural or Artificial Opening Endoscopic (ICD-10-PCS; principal; 2022-02-21 14:44)
PROC: 3E04329 Introduction of Other Anti-infective into Central Vein, Percutaneous Approach (ICD-10-PCS; 2022-02-22)
PROC: 02HV33Z Insertion of Infusion Device into Superior Vena Cava, Percutaneous Approach (ICD-10-PCS; 2022-02-27)
PROC: 05HY33Z Insertion of Infusion Device into Upper Vein, Percutaneous Approach (ICD-10-PCS; 2022-02-27)
DX: A41.02 Sepsis due to Methicillin resistant Staphylococcus aureus (principal); K57.92 Diverticulitis of intestine, part unspecified, without perforation or abscess without bleeding; N13.6 Pyonephrosis; N39.0 Urinary tract infection, site not specified; N17.9 Acute kidney failure, unspecified; I48.0 Paroxysmal atrial fibrillation; Z79.01 Long term (current) use of anticoagulants; E11.69 Type 2 diabetes mellitus with other specified complication; Z20.822 Contact with and (suspected) exposure to COVID-19; E78.5 Hyperlipidemia, unspecified; M19.90 Unspecified osteoarthritis, unspecified site; F32.9 Major depressive disorder, single episode, unspecified; G47.30 Sleep apnea, unspecified; E11.65 Type 2 diabetes mellitus with hyperglycemia; Z88.0 Allergy status to penicillin; K76.0 Fatty (change of) liver, not elsewhere classified; K12.1 Other forms of stomatitis; E66.09 Other obesity due to excess calories; Z68.34 Body mass index [BMI] 34.0-34.9, adult; Z79.84 Long term (current) use of oral hypoglycemic drugs
CPT/HCPCS: 36415; 36569; 71045; 71260; 74176; 74177; 74420; 80048; 80053; 80061; 80202; 81001; 82948; 83036; 83605; 83735; 84100; 84443; 85025; 87040; 87071; 87086; 87186; 87205; 93005; 93306; 94799; 96361; 96372; 99251; 99284; C1766; C2625; J0692; J1100; J1160; J1580; J1650; J1885; J2250; J2270; J2405; J2543; J3010; J3370; J7030; J7050; Q9967

== ENCOUNTER 2022-03-10 19:28 | Emergency (ER) | payer MEDICARE ==
[~2022-03-10] VITALS: Ht 172.7 cm; Wt 103.4 kg
[~2022-03-10 19:28] MED LIST changes: +AMIODARONE HCL200 MG PO; +CARDIZEM60 MG PO; +SIMVASTATIN40 MG PO; +TOPROL XL50 MG PO; +XARELTO20 MG PO
[2022-03-10] MEDS ORDERED: ALTEPLASE RECOMBINANT 2 MG/2 ML VIAL IV PRN (20:15)
[2022-03-10 21:29] VITALS: BP 101/62
== END 2022-03-10 21:28 | disposition home or self-care (01) ==
LOC: ER 19:35
DX: T82.594A Other mechanical complication of infusion catheter, initial encounter (principal); Z87.442 Personal history of urinary calculi; Z86.19 Personal history of other infectious and parasitic diseases
CPT/HCPCS: 99283; J2997

== ENCOUNTER → 2024-04-14 | Day surgery (SDC) | payer MEDICARE ==
[2024-04-13 12:17] LABS: BASOPHILS # (AUTO) 0.1 (0.0-0.1); BASOPHILS % 0.7 % (0.0-1.0); EOSINOPHILS # (AUTO) 0.2 (0.0-0.4); EOSINOPHILS % 2.4 % (0.0-6.0); HEMATOCRIT 46.6 % (38.2-49.6); HEMOGLOBIN 15.4 g/dL (14.0-18.0); LYMPHOCYTES # (AUTO) 2.8 (1.0-3.2); LYMPHOCYTES % 33.2 % (18.0-39.1); MEAN CORPUSCULAR HEMOGLOBIN 33.8 pg (28-32); MEAN CORPUSCULAR VOLUME 102.4 fL (81-99); MONOCYTES # (AUTO) 0.9 (0.2-0.8); MONOCYTES % 10.3 % (4.4-11.3); NEUTROPHILS # (AUTO) 4.4 (2.1-6.9); NEUTROPHILS % 52.7 % (38.7-80.0); PLATELET COUNT 207 x10e3/uL (140-360); RED BLOOD COUNT 4.55 x10e6/uL (4.3-5.7); RED CELL DISTRIBUTION WIDTH 13.9 % (11.7-14.4); WHITE BLOOD COUNT 8.43 x10e3/uL (4.8-10.8)
[~2024-04-14] MED LIST changes: +ACETAMINOPHEN 1000 MG/100 ML 0 ML IV ONE; +ALBUTEROL 90 MCG/ACT INHALER INH ONE; +ALLOPURINOL300 MG PO; +ALTOPREV40 MG PO; +CEFTRIAXONE 1 GM VIAL ONE; +DEXAMETHASONE SOD PHOS INJ 4 MG/ML SDV ONE; +FENTANYL CITRATE/PF 100MCG/2 ML INJ ONE; +IOPAMIDOL 610MG/1ML 300 MG/ML VIAL IV ONE; +LIDOCAINE HCL 2% LOCAL INJ 5 ML SDV VIAL INJ ONE; +MELOXICAM7.5 MG PO; +METOPROLOL SUCC25 MG PO; +OMEGA-3 FISH1000 MG PO; +ONDANSETRON HCL INJ 2MG/ML 2ML 2 MG/ML VIAL ONE; +PROPOFOL IV EMULSION 10 MG/ML 20 ML VIAL ONE; +VITAMIN D350 MCG
[2024-04-14] MEDS: LACTATED RINGER'S 1,000 ML ONE (07:39)
[2024-04-14 11:15] VITALS: BP 118/75; PULSE 68; RESP 16; O2SAT 94
== END | disposition home or self-care (01) ==
LOC: OR 06:52
PROVIDERS: ATTEND Urology
DX: N20.0 Calculus of kidney (principal); N20.1 Calculus of ureter; G47.33 Obstructive sleep apnea (adult) (pediatric); I10 Essential (primary) hypertension; E78.5 Hyperlipidemia, unspecified; E11.9 Type 2 diabetes mellitus without complications; M06.9 Rheumatoid arthritis, unspecified; F17.200 Nicotine dependence, unspecified, uncomplicated; Z88.6 Allergy status to analgesic agent; Z88.1 Allergy status to other antibiotic agents; Z88.8 Allergy status to other drugs, medicaments and biological substances; Z01.810 Encounter for preprocedural cardiovascular examination; Z01.812 Encounter for preprocedural laboratory examination; Z01.818 Encounter for other preprocedural examination; Z79.1 Long term (current) use of non-steroidal anti-inflammatories (NSAID); Z79.84 Long term (current) use of oral hypoglycemic drugs; Z79.899 Other long term (current) drug therapy; Z85.828 Personal history of other malignant neoplasm of skin
CPT/HCPCS: 36415 ×2; 50590; 71046; 74018; 82948; 85025; 93005; J0696; J1100; J2003; J2405; J2704; J3010; J7121

== ENCOUNTER → 2024-12-22 | Day surgery (SDC) | payer MEDICARE ==
[2024-12-20 13:14] LABS: BASOPHILS % 0.5 % (0.0-1.0); EOSINOPHILS % 2.5 % (0.0-6.0); LYMPHOCYTES % 31.0 % (18.0-39.1); MONOCYTES % 11.1 % (4.4-11.3); NEUTROPHILS % 54.5 % (38.7-80.0); RED CELL DISTRIBUTION WIDTH 14.0 % (11.7-14.4)
[~2024-12-22] MED LIST changes: -ACETAMINOPHEN 1000 MG/100 ML 0 ML IV ONE; -ALBUTEROL 90 MCG/ACT INHALER INH ONE; +CIPROFLOXACIN 400 MG/D5W 200ML 200 ML IV ONE; +HYDROCODON-ACE1 EA12 PO; -IOPAMIDOL 610MG/1ML 300 MG/ML VIAL IV ONE; +LACTATED RINGER'S 1,000 ML ONE; +METOCLOPRAMIDE HCL 10 MG/2ML VIAL ONE
[2024-12-22 07:45] VITALS: TEMP 97
[2024-12-22 08:45] VITALS: BP 130/92; PULSE 65; RESP 17; O2SAT 96
== END | disposition home or self-care (01) ==
LOC: OR 05:55
PROVIDERS: ATTEND Urology
DX: N20.0 Calculus of kidney (principal); G47.33 Obstructive sleep apnea (adult) (pediatric); I10 Essential (primary) hypertension; E66.9 Obesity, unspecified; F17.210 Nicotine dependence, cigarettes, uncomplicated; Z88.8 Allergy status to other drugs, medicaments and biological substances; Z88.6 Allergy status to analgesic agent; Z88.1 Allergy status to other antibiotic agents; Z91.014 Allergy to mammalian meats; Z01.810 Encounter for preprocedural cardiovascular examination; Z01.812 Encounter for preprocedural laboratory examination; Z01.818 Encounter for other preprocedural examination; Z79.1 Long term (current) use of non-steroidal anti-inflammatories (NSAID); Z79.84 Long term (current) use of oral hypoglycemic drugs; Z79.899 Other long term (current) drug therapy
CPT/HCPCS: 36415 ×2; 50590; 74018; 82948; 85025; 93005; J0744; J1100; J2003; J2405; J2704; J7121; J0696; J2765

== ENCOUNTER → 2025-01-12 | Day surgery (SDC) | payer MEDICARE ==
[~2025-01-12] MED LIST changes: +ACETAMINOPHEN 1000 MG/100 ML 100 ML IV ONE; -CEFTRIAXONE 1 GM VIAL ONE; -CIPROFLOXACIN 400 MG/D5W 200ML 200 ML IV ONE; +DIPHENHYDRAMINE HCL INJ 50 MG/ML VIAL ONE; -LACTATED RINGER'S 1,000 ML ONE; -METOCLOPRAMIDE HCL 10 MG/2ML VIAL ONE; +SEVOFLURANE INHAL SOLN 250 ML PEN BTL ONE
[2025-01-12] MEDS: LACTATED RINGER'S 1,000 ML ONE (06:04)
[2025-01-12] MEDS: CEFTRIAXONE 1 GM VIAL ONE (06:05)
[2025-01-12 08:57] VITALS: BP 129/66; PULSE 66; RESP 18; O2SAT 95
== END | disposition home or self-care (01) ==
LOC: OR 05:21
PROVIDERS: ATTEND Urology
DX: N20.0 Calculus of kidney (principal); N40.1 Benign prostatic hyperplasia with lower urinary tract symptoms; N13.30 Unspecified hydronephrosis; N28.1 Cyst of kidney, acquired; D35.01 Benign neoplasm of right adrenal gland; D35.02 Benign neoplasm of left adrenal gland; G47.33 Obstructive sleep apnea (adult) (pediatric); I10 Essential (primary) hypertension; E78.5 Hyperlipidemia, unspecified; E66.01 Morbid (severe) obesity due to excess calories; M06.9 Rheumatoid arthritis, unspecified; F17.210 Nicotine dependence, cigarettes, uncomplicated; Z88.1 Allergy status to other antibiotic agents; Z88.8 Allergy status to other drugs, medicaments and biological substances; Z01.818 Encounter for other preprocedural examination; Z79.1 Long term (current) use of non-steroidal anti-inflammatories (NSAID); Z79.899 Other long term (current) drug therapy; Z68.38 Body mass index [BMI] 38.0-38.9, adult; Z84.1 Family history of disorders of kidney and ureter
CPT/HCPCS: 36415; 50590; 74018; 82948; J0131; J0696; J1100; J1200; J2003; J2405; J2704; J3010; J7121